=== PATIENT | female | born 1985 | race Caucasian/White ===

== ENCOUNTER 2024-06-11 08:30 | Outpatient (AMB) | payer OTHER, SELFPAY ==
--- NOTE | 2024-06-11 08:30 | A.OFFVIS_ITS ---
Vital Signs 06/11/24 08:32 Height 5 ft Weight 116 lb 13.52 oz BMI 22.8 BP 113/70 Blood Pressure Location Lt brachial Position Sitting Pulse 80 Intake Visit Reasons: Diarrhea and Hx of IBS Intake Note: Lela presents in the office as a new patient for diarrhea and Hx of IBS. CC: She states that she is here today because she suffers from diarrhea. She seen a GI specialist when she was 11 years old where she was diagnosed with IBS but she does not recall ever having any procedures done. She denies any blood or pains in the stomach. Cement Cutter Required: No Allergies No Known Allergies Allergy (Verified 06/11/24 08:34) HPI HPI Diarrhea and Hx of IBS: Details: HPI 39 yr old f here for assessment She was dx with IBS with IBS aged 11 She has noted diarrheal stool for last 1 year now using imodium a lot more often she can go 5 times a day, can be soft no blood in stools no melena no abdominal pain no n/v she can note worsening of sx with dairy --avoids lactose if possible no dysphagai no weight loss appetite is good ROS: Constitutional : No Weight loss, No Fever, No Chills ENT/Mouth : No sore throat, No Rhinorrhea Eyes: No Swelling, No Redness Cardiovascular : No Chest Pain, No SOB, No Edema Respiratory : No Cough, No Sputum, No Wheezing Gastrointestinal : see HPI Genitourinary : NO Dysuria, No Urinary Frequency, No Hematuria, No Urgency Musculoskeletal : no joint pain, No Myalgias, No Joint Swelling Skin : No Skin Lesions, No rash, itchy thighs Neuro : No Weakness, No Numbness, No Dizziness, No Headache Psych : No Anxiety/Panic, No Depression Heme/Lymph: No Bruising, No Lymphadenopathy Endocrine : No Polyuria, No Polydipsia All other systems reviewed and are negative. 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 VITAL SIGNS:see workflow HEENT: Nonicteric sclerae, PERRLA, EOMI. Oropharynx clear. Moist mucous membranes. Conjunctivae appear well perfused. No thyroid mass. CHEST: Chest wall is nontender. HEART: Regular rate and rhythm without murmurs. LUNGS: Clear to auscultation bilaterally. ABDOMEN: Soft, positive bowel sounds, nontender, no organomegaly.no flank tenderness SKIN: red scaly rash on left arm NEUROLOGIC: Cranial nerves II-XII intact without motor/sensory deficit. Psych: normal affect A/P: 1/ Chronic abnormal bowel habit, recently worse using more imodium recently, notes link with dairy--wide differential incl metabolic, infectious, inflammatory, allergic Plans: 1/ Stools, labs as below, incl rast 2/ egd, colo with bx--suprep REPLACED BY [facility] Surgical History SVT (supraventricular tachycardia) Family History (Updated 06/11/24 @ 08:34 by YULY Barakat) Mother Stroke Father Heart attack Paternal Grandmother Colon cancer Social History Household Members: Family Alcohol intake: current Alcohol intake frequency: holidays/special occasions only Alcohol type: wine Patient Tobacco Use Status: Never used Tobacco Physical Exam Vital Signs: BMI result Body Mass Index 22.8 Assessment & Plan Assessment & Plan (1) Diarrhea: Code(s): R19.7 - Diarrhea, unspecified Category: Medical Qualifiers: Diarrhea type: unspecified type Qualified Code(s): R19.7 - Diarrhea, unspecified Plan: see above Orders: Orders Comprehensive Met. Panel Today K75.81 - Nonalcoholic steatohepatitis (SANDRA), R19.7 - Diarrhea, unspecified Rast Allergen Today R19.7 - Diarrhea, unspecified, Z91.018 - Allergy to other foods Transglutaminase IgA Today R19.7 - Diarrhea, unspecified TSH reflex Free T4 Today R19.7 - Diarrhea, unspecified Lactoferrin, Fecal, Quant. Today K51.50 - Left sided colitis without complications, R19.7 - Diarrhea, unspecified Vitamin B12 and Folate Today R19.7 - Diarrhea, unspecified Pancreatic Elastase-1 Today R19.7 - Diarrhea, unspecified GI Panel Today R19.7 - Diarrhea, unspecified Giardia Ag Stool EIA Today R19.7 - Diarrhea, unspecified C Reactive Protein Today R19.7 - Diarrhea, unspecified Complete Blood Count Auto Diff Today R19.7 - Diarrhea, unspecified CDiff Gene PCR Today R19.7 - Diarrhea, unspecified Transglutaminase Ab IgG Today G89.29 - Other chronic pain, R10.33 - Periumbilical pain, R19.7 - Diarrhea, unspecified Fecal Fat Qualitative Today R19.7 - Diarrhea, unspecified Ferritin Today R19.7 - Diarrhea, unspecified Immunoglobulins,IgG IgA IgM Today R19.7 - Diarrhea, unspecified Histamine Plasma Today R19.7 - Diarrhea, unspecified Medications: New sodium,potassium,mag sulfates 17.5-3.13-1.6 gram (Suprep Bowel Prep Kit) DILUTE; drink 1/2 at 6-8 pm and half at 11 PM- 1AM 354 mL 0RF Coding Level of Care Code New Pt Level 4 (75405) Diagnoses Diarrhea, unspecified type R19.7 Diarrhea type: unspecified type
[2024-06-11 08:32] VITALS: BP 113/70; PULSE 80; BMI 22.8
--- OUTSIDE RECORDS SUMMARY | 2024-06-13 12:59 | XMS_ITS ---
Author Organization [facility] Fatemeh valle [place] Address [address] [facility] [address] Care Team Providers Care Oxygen Equipment Aide Name Role Phone Lizabeth Smith [phone] Allergies No Known Allergies Results Component Value Reference Range Notes X ray : Foot, left 3V Reviewed date:05/11/2024 11:03:53 AM Interpretation:See Examination above Performing Lab: Notes/Report: See Examination above REASON FOR VISIT Foot pain Medications Medication SIG (Take, Route, Frequency, Duration) Notes Start Date End Date Status Multivitamin Active Incassia Active Social History Tobacco Use: Social History Observation Description Date Details (start date - stop date) Never Smoker NA - NA Tobacco Use/Smoking Question Answer Notes Are you a: nonsmoker Additional Findings: Tobacco Non-User Current no n-smoker Alcohol Screen Question Answer Notes Did you have a drink containing alcohol in the p ast year? Yes Points 0 Interpretation Negative Tobacco use other than smoking: Question Answer Notes Are you an other tobacco user? No Vital Signs Height 5 ft in 05/11/2024 Weight 115 lbs 05/11/2024 BMI 22.46 kg/m2 05/11/2024 Encounters Encounter Location Date Provider Diagnosis [facility] [place] [address] 05/11/2024 Lizabeth Black Pain in left foot M79.672 ; Metatarsalgia, left foot M77.42 ; Pain in left ankle and joints of left foot M25.572 ; Bursitis of intermetatarsal bursa of left foot M77.52 and Keratosis L57.0 Assessments Encounter Date Diagnosis (ICD Code) Assessment Notes Treatment Notes Treatment Clinical Notes Section Notes 05/11/2024 Pain in left foot (ICD-10 - M79.672) 05/11/2024 Metatarsalgia, left foot (ICD-10 - M77.42) 05/11/2024 Pain in left ankle and joints of left foot (ICD-10 - M25.572) 05/11/2024 Bursitis of intermetatarsal bursa of left foot (ICD-10 - M77.52) 05/11/2024 Keratosis (ICD-10 - L57.0) Plan Of Treatment Next Appt Details Follow Up: prn, Reason: Progress Notes * Lela RODOB: 4 (39 yo F)Acc No.[id number]:05/11/2024 Progress Notes Patient:?Lela Ro Provider:?Lizabeth Smith DPM :1985???Age:39 Y???Sex:Female D ate:05/11/2024 Address:[address] [place], [place] [id number] Subjective: * Chief Complaints: * ???Foot pain * HPI: ???Foot Pain:?Location:?Bottom, Forefoot, LEFT.?Duration:?, 1 year or more.?Course:?worse.?Treatments:?rest/alter normal daily activity.? * ROS:?General/Constitutional:?Nausea?denies.?Vomiting?denies.?Hunger Thirst?denies.?Loss appetite?denies.?Chills?denies.?Fatigue?denies.?Fever?denies.?Night Sweats?denies.?Unexplained weight loss?denies.?Unexplained weight gain?denies.?HEENTM:?Dentures?denies.?Dizziness?denies.?Glasses/contacts?denies.?Retinopathy?de nies.?Blurred/double vision?denies.?TMJ?denies.?Discharge/drainage?denies.?Implants?denies.?Sore throat?denies.?Dental implants?denies.?Hard of hearing ?denies.?Difficulty chewing/swallowing/speaking?denies.?Nose bleeds?denies.?Sore mouth?denies.?Respiratory:?On Oxygen?denies.?Pneumonia/pleurisy?denies.?Bronchitis?denies.?Emphysema?denies.?C oughing?denies.?Cough blood?denies.?Shortness of breath?denies.?Wheezing?denies.?Cardiovascular:?Pacemaker?denies.?MVP?denies.?WPW?denies.?CHF?denies.?Heart attack?denies.?Septal defect?denies.?Rapid beat?denies.?Chest pain ?denies.?Atrial Fib.?admits.?Murmur/Palpitations?denies.?Gastrointestinal:?Hemorrhoids?denies.?Stomach/Abdominal pain?denies.?Dark blood stool?denies.?Irritable bowel ?admits.?Constipation?denies.?Diarrhea?denies.?Hematology:?Swelling?denies.?Clots?denies.?Varicose Veins?denies.?Bruising?denies.?Bleeding problem?denies.?Genitourinary:?Blood urine?denies.?Frequent/Painfu/urination/bladder control?denies.?Kidney stones?denies.?Infection (UTI)?denies.?Nephropathy?denies.?sex trans dis (STD)?denies.?Prostate?denies.?Musculoskeletal:?Hammertoes?denies.?Bunions?denies.?Back Pain?denies.?Muscle Cramps/ Resting?denies.?Muscle cramps / walking?denies.?Generalized aches and pains?denies.?Weakness?denies.?Integ.:?Dailey?denies.?Scars?denies.?Corns/calluses?denies.?Ingrown nails?denies.?Painful nails?denies.?Open Sores?denies.?Rashes?denies.?Neurologic:?Difficulty sleeping?denies.?Brain disorder?denies.?Numbness?denies.?Balance trouble?denies.?Confusion?denies.?Fainting/blackouts?denies.?Tingling?denies.?Tr emors?denies.? * Medical History:? * Surgical History:?catheter a blation 2014 * Hospitalization/Major Diagno stic Procedure:?No Hospitalization History. * Family History:?Mother: krysten hall, poor circulation, diagnosed with Unspecified cerebral artery occlusion with cerebral infarction.?Father: alive, diagnosed with Diabetic - NIDDM, Unspecified heart disease. Maternal Grand Father: diagnosed with Other malignant neoplasm of unspecified site.? * Social History:?Tobacco Use:?Tobacco Use/Smoking?Are you a:?nonsmoker ?Additional Findings: Tobacco Non-User?Current non-smoker ?Tobacco use other than smoking?Are you an other tobacco user??No ???Drugs/Alcohol:?Drugs?Have you used drugs other than those for medical reasons in the past 12 months??No ?Alcohol Screen?Did you have a drink containing alcohol in the past year??Yes ?Points?0 ?Interpretation?Negative ???Miscellaneous:?Caffeine: yes, 2-3 cups per day. ?Children: yes, 2. ?Exercise: yes, walking, hiking, weightlifting. ?Marital status: . 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 * Medications:?TakingIncassia Multivitamin Medication List reviewed and reconciled with the patientTaking Incassia Taking Multivitamin Medication List reviewed and reconciled with the patient * Allergies:?N.K.D.A.yes[Aller gies Verified] Objective: * Vitals:?Ht: 5 ft, Wt:115, BM I:22.46, Shoe size: 6-6.5, Ht-cm: 152.4 cm, Wt-k.16 kg. * Examination: ???General Examination: ?GENERAL APPEARANCE:?Reveals a pleasant, alert, well nourished, well- developed, well hydrated individual, who demonstrates proper attention to hygiene/body habitus, and is in no acute distress, Pt serves as own historian for office visit today.?ORIENTED:?person, place, and time.?Orthopedic: ?MUSCLE STRENGTH:?5/5 all groups in a symmetrical fashion, B/L.?GAIT ABNORMALITY:?antalgic , Pronated , flexor stabilization noted , abducted angle and base of gate.?FOOT MORPHOLOGY:?normal , B/L.?DIGITAL DEFORMITIES:?Digital contracture, PIPJ, 2-5 B/L, incompl-reducible with WB, or to push-up test, no over, nor underlapping.?MPJ PATHOLOGY:? Pain, swelling, and inflammation to 3rd, plantar MPJ(s), LEFT, No MPJ pain with ROM, [ - ] Ecchymosis.?Neurological: ?SENSORY:?Neurological exam reveals intact sensorium, pain sensation normal, vibration sensation intact, pinprick sensation is normal in the lower extremities, Pt denies, anesthesia, burning, paresthesia, tingling, B/L.?TINEL'S COMPRESSION:? Negative tarsal tunnel, yen pedis, and medial calcaneal nerves, Left.?Neuroma Pain: ?PALPATION:?No interspace pain noted on palpation, LEFT.?Vascular: ?DP PULSES(B):?3/4, B/L.?PT PULSES(B):?3/4, B/L.?CAPILLARY FILL TIME:?immediate, all digits, B/L.?TROPHIC CONDITION-TEXTURE/ELASTICITY/TURGOR/HAIR GROWTH(B):?normal, B/L.?TEMPERTURE GRADIENT(C):?normal, warm to cool, proximal to distal, B/L, B/L.?PIGMENTATION:?normal, B/L.?EDEMA(C):?absent, B/L.?ELEV. PALOR:?absent, B/L.?Dermatologic: ?SKIN FINDINGS:?Skin exam reveals normal color, texture, elasticity, and turgor. There are no masses, nor excrescences. The interspaces are clear, B/L , Skin exam reveals Keratotic lesion(s) located at , Plantar , SUB MTH (s) , 3 , Left.?VERRUCA:?NO evidence of verruca lesion.?X-Rays - IMAGING REPORT: ?Clinical Indication(s):? Evaluate for Fracture.?Views:? 3 views of Foot, AP, LAT, LO, LEFT.?Findings:?normal bone and soft tissue density consistent for patients age and sex, elongated plantarflexed [3rd_ ] metatarsal with hypertrophied MTH.?Fracture:?Negative fractures identified.? Assessment: * Assessment: 1.?Metatarsalgia, left foot - M77.42 (Primary)?2.?Pain in left foot - M79.672?3.?Pain in left ankle and joints of left foot - M25.572?4.?Bursitis of intermetatarsal bursa of left foot - M77.52?5.?Keratosis - L57.0? Plan: * Treatment: * Procedure Codes:?37258 X-RAY EXAM OF LEFT FOOT 3V, Modifiers: 26 , LT * Preventive Medicine:? ??Counseling:?Discussion:?-04: Office or other outpatient visit for the evaluation and management of a new patient, which required a medically appropriate history and/or examination and MODERATE level of DECISION MAKING for: 1 OR MORE CHRONIC PROBLEM(S) THATS WORSENING, 2 STABLE CHRONIC PROBLEMS, A NEWLY DIAGNOSED PROBLEM WITH UNCERTAIN PROGNOSIS, AN ACUTE COMPLICATED INJURY WITH MULTIPLE TREATMENT OPTIONS, OR AN ACUTE PROBLEM WITH ACCOMPANYING SYSTEMIC SYMPTOMS, THAT POSE(S) A MODERATE RISK OF MORBIDITY. THIS CONDITION MAY ALSO INCLUDE RX DRUG MANAGEMENT, OR A DECISON FOR MINOR SURGERY. The visit on the day of the encounter encompassed interpreting the data and educating the patient as to the nature of their condition, treatment options available according to their individual PMH, meds, allergies, and overall health/living conditions, as well as any potential risks or complications that may occur from a failure to adhere to, and participate in, the recommended course of therapy. The discussion included a complete verbal, and/or written explanation of the examination results, any x-rays taken, the proposed diagnosis, and outline of the treatment plan. A schedule for future care needs was also explained. The patient verbalized an understanding of the instructions at this time and agreed to be an active participant in their treatment. If the patient should think of any questions or concerns after the visit, I have encouraged the patient to call the office.?BioMech.:?Discussed and reviewed the X-rays with the patient. We discussed how the findings relate to the patients symptoms/complaints. Answered any and all questions., I discussed the Pts foot biomechanics with them and how it relates to their problem.?Metatarsalgea:?I explained to the patient the possible etiologies of their Metatarsalgea Foot pain, including foot type/shoegear/activity level/exercise routine and the risks/benefits of all the different treatment options for pain including: No treatment at all, Rest, Ice, NSAIDs(only if well tolerated after meals), New/supportive Shoegear, Strappings and Tapings, Foot/Ankle AFO Bracing, Stretching exercises, Deep Tissue Massage, Arch support/shoe inserts, Custom orthoses, Topical analgesics including Aspercream/Voltaren gel, Physical Therapy, Cortisone injection therapy, EPAT/ESWT. Advantages and disadvantages of each option were discussed and the patients questions re: shoegear, custom vs prefabricated inserts, activity level, PO vs Topical medications (and their respective potential complications/drug interactions/side effects), and consistency in home treatment regimens for optimal success were answered to their verbally confirmed satisfaction.?Orthotics:?I explained to the patient the benefits of OT use. I explained that orthoses are medically necessary to decrease the foot pain through proper mechanical control, support of their foot, decrease pain associated with the plantar lesion, decrease pain under the painful metatarsal by supplementing the soft tissue.Pt defers on OTC inserts at thie time.?Shoe Gear Counseling:?The patient and I reviewed the types of shoes they should be wearing. My recommendation included obtaining a well-fitted shoe with a good supportive, non-foldable nor twistable sole, plenty of toe/room for the forefoot, and proper arch support. Based on todays examination, I recommended the patient look for new shoes, by having their feet professionally measured. We discussed that generally the best time of the day for a shoe fitting is the afternoon. Different shoes types and brands to best match the patients occupation and vocation were discussed. Specific brand selection will be up to the patient, their individual foot condition/deformities, and fit. The patient and I reviewed the standard new shoe break in period by wearing them for a few hours a day while checking for redness or sores as wear time is increased. The patient verbally confirmed to understanding the information discussed, Recommend supportive running shoes for patient, discussed various shoe brands including Hinojosa, Asics, New Balance, [employer]y. Discussed types of shoes to avoid for patients foot type..? * Follow Up:?prn * Images: * Sign off status: Completed true * Provider:?Lizabeth Smith DPM Date:?2023 Generated for Ruby hewitt/Solo/Valeriaitting on:?06/13/2024 12:59 PM EST History and Physical Notes * HPI (History of Present Illness) Category Sub-Category Detail Notes Category Not es Foot Pain Location: Bottom, Forefoot, LEFT Duration: , 1 year or more Course: worse Treatments: rest/alter normal da stanislaw activity Examination Category Sub-Category Detail Notes Category Not es Neuroma Pain PALPATION: No interspace pain noted on palpation, LEFT Neurological SENSORY: Neurological exa m reveals intact sensorium, pain sensation normal, vibration sensation intact, pinprick sensation is normal in the lower extremities, Pt denies, anesthesia, burning, paresthesia, tingling, B/L TINEL'S COMPRESSION: Negative tarsal abbie jameson, yen pedis, and medial calcaneal nerves, Left Dermatologic SKIN FINDINGS: Skin exam reveal s normal color, texture, elasticity, and turgor. There are no masses, nor excrescences. The interspaces are clear, B/L , Skin exam reveals Keratotic lesion(s) located at , Plantar , SUB MTH (s) , 3 , Left VERRUCA: NO evidence of verru ca lesion Orthopedic GAIT ABNORMALITY: antalgic , Pro nated , flexor stabilization noted , abducted angle and base of gate FOOT MORPHOLOGY: normal , B/L DIGITAL DEFORMITIES: Digital contracture , PIPJ, 2-5 B/L, incompl-reducible with WB, or to push-up test, no over, nor underlapping MPJ PATHOLOGY: Pain, swelling, and inflammation to 3rd, plantar MPJ(s), LEFT, No MPJ pain with ROM, [ - ] Ecchymosis MUSCLE STRENGTH: 5/5 all groups in a symmetrical fashion, B/L General Examination GENERAL APPEARANCE: Reveals a pleasant, alert, well nourished, well-developed, well hydrated individual, who demonstrates proper attention to hygiene/body habitus, and is in no acute distress, Pt serves as own historian for office visit today ORIENTED: person, place, and t martín Vascular DP PULSES(B): 3/4, B/L PT PULSES(B): 3/4, B/L CAPILLARY FILL TIME: immediate, all digi ts, B/L TEMPERTURE GRADIENT(C): normal, warm to cool, proximal to distal, B/L, B/L TROPHIC CONDITION-TEXTURE/ELASTICITY/TURGOR/HAIR GROWTH(B): normal, B/L EDEMA(C): absent, B/L ELEV. PALOR: absent, B/L PIGMENTATION: normal, B/L X-Rays - IMAGING REPORT Findings: normal b one and soft tissue density consistent for patients age and sex, elongated plantarflexed [3rd_ ] metatarsal with hypertrophied MTH Fracture: Negative fractures i dentified Views: 3 views of Foot, AP, LAT, LO, LEFT Clinical Indication(s): Evaluate for Fra cture
--- OUTSIDE RECORDS SUMMARY | 2024-06-13 12:59 | XMS_ITS ---
Author Organization [facility] Address [address] [place] [address] Care Team Providers Care Tracing Lathe Set Up Operator Name Role Phone Lizabeth Smith Alise [phone] REASON FOR VISIT TRANSFER IRON OPERATOR PPWK Entered Encounters Encounter Location Date Provider Diagnosis [facility] [address] [place] [address] 05/04/2024 Lizabeth Smith Plan Of Treatment No Information Progress Notes * Lela RODOB: 4 (39 yo F)Acc No.[id number]:05/04/2024 Patient:?RoLela newby :1985???Age:39 Y???Sex:Female Address:[address] [place] [address], [address] * true * Date:? Generated for Ruby hewitt/Solo/eTransmitting on:?06/13/2024 12:59 PM EST
--- OUTSIDE RECORDS SUMMARY | 2024-06-13 13:00 | XMS_ITS ---
Author Organization [facility] Address [address] [place] [address] Care Team Providers Care Nursing Professor Name Role Phone Lizabeth Smith Alise [phone] Encounters Encounter Location Date Provider Diagnosis [address] [address] 02/29/2024 Lizabeth Smith Plan Of Treatment No Information Progress Notes * Lela RODOB: 4 (39 yo F)Acc No.[id number]:02/29/2024 Progress Notes Patient:?ARABELLA Lela Provider:?Lizabeth Smith DPM :1985???Age:38 Y???Sex:Female D ate:02/29/2024 Address:[address] [place], [place] [id number] Subjective: * Chief Complaints: * ??? * Medical History:? Objective: * Vitals:? Assessment: Plan: * Treatment: * Images: * The named appointment provid er may or may not be the originator of this progress note, and it is not deemed complete until electronically signed by the appointment provider. Sign off status: Pending * Provider:Ashley Smith DPM Date:?2023 Generated for Ruby hewitt/Solo/Valeriaitting on:?06/13/2024 12:59 PM EST
--- OUTSIDE RECORDS SUMMARY | 2024-06-13 13:00 | XMS_ITS | Patient Health Record ---
Author Organization [facility] Address [address] [place] [address] Care Team Providers Care Hydrochloric Manufacturing Supervisor Name Role Phone Lizabeth Smith Unavailable [phone] Allergies No Known Allergies Results Component Value Reference Range Notes X ray : Foot, left 3V Reviewed date:05/11/2024 11:03:53 AM Interpretation:See Examination above Performing Lab: Notes/Report: See Examination above Reason For Referral No Information Medications Medication SIG (Take, Route, Frequency, Duration) [...] 05/11/2024 Encounters Encounter Location Date Provider Diagnosis [address] [address] 05/11/2024 Lizabeth Black Pain in left foot M79.672 ; Metatarsalgia, left foot M77.42 ; Pain in left ankle and joints of left foot M25.572 ; Bursitis of intermetatarsal bursa of left foot M77.52 and Keratosis L57.0 [facility] [address] [place] [address] 02/09/2024 Lizabethrafael Smith [facility] [address] [place] [address] 05/04/2024 Lizabeth Luis Assessments Encounter Date Diagnosis (ICD Code) Assessment Notes Treatment Notes Treatment Clinical Notes Section Notes 05/11/2024 Metatarsalgia, left foot (ICD-10 - M77.42) 05/11/2024 Pain in left foot (ICD-10 - M79.672) 05/11/2024 Pain in left ankle and joints of left foot (ICD-10 - M25.572) 05/11/2024 Bursitis of intermetatarsal bursa of left foot (ICD-10 - M77.52) 05/11/2024 Keratosis (ICD-10 - L57.0) Plan Of Treatment No Information Insurance Providers Payer Name Payer Address Payer Phone Subscriber Number Group Number Insured Name Patient Relationship to Insured Coverage Start Date Coverage End Date [facility] [id number] [place], [place] [phone] [id number] Lela Ro Self - patient is the insured Medical (General) History Medical History History ICD Code Headaches/Migraines Chicken pox Surgical History Surgery Date(Month/Year) catheter ablation 2013
== END 2024-06-11 08:51 | disposition home or self-care (01) ==
PROVIDERS: PCP Internal Medicine; Visit Provider Internal Medicine Gastroenterology
DX: R19.7 Diarrhea, unspecified (principal)
CPT/HCPCS: 99204

== ENCOUNTER 2024-06-11 08:30 | Outpatient (REF) | payer OTHER, SELFPAY ==
[2024-06-11 09:30] LABS: MANUAL DIFF FLAG NO
[2024-06-11 10:11] LABS: Basophils Absolute Auto 0.1 X10*3/uL (0.0-0.2); Basophils Percent Auto 0.8 % (0-2); Eosinophils Absolute Auto 0.2 X10*3/uL (0.0-0.4); Eosinophils Percent Auto 2.2 % (0-4); Hematocrit 39.4 % (37.0-47.0); Hemoglobin 13.2 g/dl (12.0-16.0); Imm Gran Abs Auto 0.02 X10*3/uL (0.00-0.03); Imm Gran Pct Auto 0.3 % (0.0-0.4); Lymphocytes Absolute Auto 2.7 X10*3/uL (1.2-4.9); Mean Corpuscular HGB Conc 33.5 g/dl (31.0-35.0); Mean Corpuscular Hemoglobin 30.8 pg (27.0-33.0); Mean Corpuscular Volume 92.1 fL (80.0-98.0); Mean Platelet Volume 9.3 fL (9.4-12.3); Monocytes Absolute Auto 0.5 X10*3/uL (0.1-1.2); Monocytes Percent Auto 7.4 % (2-11); Neutrophils Absolute Auto 3.8 x10*3/uL (2.0-8.3); Neutrophils Percent Auto 52.3 % (45-73); Platelet Count 294 X10*3/uL (160-400); Red Blood Count 4.28 X10*6/uL (4.20-5.50); Red Cell Distribution Width 11.9 % (11.0-16.0); White Blood Count 7.3 X10*3/uL (4.8-10.8)
[2024-06-11 11:10] LABS: Alanine Aminotransferase 17 U/L (0-31); Albumin Level 4.3 g/dL (3.5-5.0); Alkaline Phosphatase 73 U/L (39-117); Anion Gap 11 (12-20); Aspartate Amino Transferase 14 U/L (5-31); Bilirubin Total 0.4 mg/dL (0.0-1.0); Blood Urea Nitrogen 15 mg/dL (9-16); Calcium 9.2 mg/dL (8.4-10.2); Carbon Dioxide 24 mmol/L (22-29); Chloride 106 mmol/L (96-108); Estimated Glomerular Filt Rate > 60; Ferritin 128 ng/mL (10-250); Glucose Random 94 mg/dL (60-115); Potassium 3.8 mmol/L (3.3-5.1); Sodium 137 mmol/L (135-145); TSH reflex Free T4 2.71 uIU/mL (0.32-4.0); Total Protein 7.1 g/dL (6.5-8.0)
[2024-06-11 11:25] LABS: Folate 16.1 ng/mL (> or = 4.0); Vitamin B12 584 pg/mL (200-900)
[2024-06-12 11:33] LABS: IgA 95 mg/dL (47-310); IgG 1061 mg/dL (600-1640); IgM 136 mg/dL (50-300)
[2024-06-12 20:28] LABS: Transglutaminase Ab IgG <1.0 U/mL; Transglutaminase IgA <1.0 U/mL
[2024-06-15 17:18] LABS: Histamine Plasma <1.5 ng/mL (< OR = 1.8)
== END 2024-06-11 08:31 | disposition home or self-care (01) ==
LOC: HO.LAB 08:30
PROVIDERS: Internal Medicine Gastroenterology; PCP Internal Medicine; Visit Provider Internal Medicine
DX: Z91.018 Allergy to other foods (principal); R19.7 Diarrhea, unspecified; R10.33 Periumbilical pain; G89.29 Other chronic pain; K75.81 Nonalcoholic steatohepatitis (NASH)
CPT/HCPCS: 36415; 80053; 82607; 82728; 82746; 82784; 83088; 84443; 85025; 86003; 86140; 86364

== ENCOUNTER 2024-06-15 09:48 | Outpatient (REF) | payer OTHER, SELFPAY ==
--- OUTSIDE RECORDS SUMMARY | 2024-06-15 09:54 | XMS_ITS ---
Author Organization [facility] Address [address] [place] [address] Care Team Providers Care Transfer Man Name Role Phone Lizabeth Smith Alise [phone] Encounters Encounter Location Date Provider Diagnosis [address] [address] 02/29/2024 Lizabeth Smith Plan Of Treatment No Information Progress Notes * Lela RODOB: 4 (39 yo F)Acc No.[id number]:02/29/2024 Progress Notes Patient:?ARABELLA Lela Provider:?Lizabeth Smith DPM :1985???Age:38 Y???Sex:Female D ate:02/29/2024 Address:[address] [place], [place] [id number] Subjective: * Chief Complaints: * ??? * Medical History:? Objective: * Vitals:? Assessment: Plan: * Treatment: * Images: * The named appointment provid er may or may not be the originator of this progress note, and it is not deemed complete until electronically signed by the appointment provider. Sign off status: Pending * Provider:Ashley Smith DPM Date:?2023 Generated for Ruby hewitt/Solo/eTjorgesmitting on:?06/15/2024 09:54 AM EST
--- OUTSIDE RECORDS SUMMARY | 2024-06-15 09:54 | XMS_ITS | Patient Health Record ---
Author Organization [facility] Address [address] [place] [address] Care Team Providers Care Director Law Enforcement Name Role Phone Lizabeth Smith Unavailable [phone] Allergies No Known Allergies Results Component Value [...] 05/11/2024 Encounters Encounter Location Date Provider Diagnosis [address] [address] 05/11/2024 Lizabeth Black Pain in left foot M79.672 ; Metatarsalgia, left foot M77.42 ; Pain in left ankle and joints of left foot M25.572 ; Bursitis of intermetatarsal bursa of left foot M77.52 and Keratosis L57.0 [facility] [address] [place] [address] 02/09/2024 Lizabethrafael Smith [facility] [address] [place] [address] 05/04/2024 Lizabeth Luis Assessments Encounter Date Diagnosis [...] Insured Coverage Start Date Coverage End Date [facility] [id number] [place], [place] [phone] [id number] Lela Ro Self - patient is the insured Medical (General) History Medical History History ICD Code Headaches/Migraines Chicken pox Surgical History Surgery Date(Month/Year) catheter ablation 2013
--- OUTSIDE RECORDS SUMMARY | 2024-06-15 09:54 | XMS_ITS ---
Author Organization [facility] Address [address] [place] [address] Care Team Providers Care Reading Specialist Name Role Phone Lizabeth Smith Alise [phone] REASON FOR VISIT [facility] Entered Encounters Encounter Location Date Provider Diagnosis [facility] [address] [place] [address] 05/04/2024 Lizabeth Smith Plan Of Treatment No Information Progress Notes * Lela RODOB: 4 (39 yo F)Acc No.[id number]:05/04/2024 Patient:?RoLela newby :1985???Age:39 Y???Sex:Female Address:[address] [place] [address], [address] * true * Date:? Generated for Ruby hewitt/Solo/eTransmitting on:?06/15/2024 09:54 AM EST
--- OUTSIDE RECORDS SUMMARY | 2024-06-15 09:54 | XMS_ITS ---
[facility] Fatemeh valle Joes Address [address] [facility] [place] [address] Care Team Providers Care Rn Critical Care Name Role Phone Lizabeth Smith [phone] Allergies No Known Allergies Results Component Value [...] 05/11/2024 Encounters Encounter Location Date [facility] [place] [address] 05/11/2024 Lizabeth Black Pain in left foot [...] * Lela RODOB: 4 (39 yo F)Acc No.[id number]:05/11/2024 Progress Notes Patient:?Lela Ro Provider:?Lizabeth Smith DPM :1985???Age:39 Y???Sex:Female D ate:05/11/2024 Address:[address] [place], [place] [id number] Subjective: * Chief Complaints: * ???Foot pain [...] walking, hiking, weightlifting. ?Marital status: . 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 * Medications:?TakingIncassia Multivitamin Medication List reviewed and [...] - L57.0? Plan: * Treatment: * Procedure Codes:?72753 X-RAY EXAM OF LEFT FOOT 3V, Modifiers: [...] Provider:?Lizabeth Smith DPM Date:?2023 Generated for Ruby hewitt/Solo/Constanza on:?06/15/2024 09:54 AM EST History and Physical Notes * HPI [...]
[2024-06-15 11:48] LABS: CDiff Gene PCR NEGATIVE (Negative)
[2024-06-15 11:59] LABS: Adenovirus F 40/41 Not Detected (Not Detect.); Astrovirus Not Detected (Not Detect.); Campylobacter Not Detected (Not Detect.); Cryptosporidium Not Detected (Not Detect.); Cyclospora cayetanensis Not Detected (Not Detect.); E. coli EAEC Not Detected (Not Detect.); E. coli EPEC Detected (Not Detect.); E. coli ETEC Not Detected (Not Detect.); E. coli STEC Not Detected (Not Detect.); Entamoeba histolytica Not Detected (Not Detect.); Giardia lamblia Not Detected (Not Detect.); Norovirus GI/GII Not Detected (Not Detect.); Plesiomonas shigelloides Not Detected (Not Detect.); Rotavirus A Not Detected (Not Detect.); Salmonella Not Detected (Not Detect.); Sapovirus Not Detected (Not Detect.); Shigella sp./EIEC Not Detected (Not Detect.); Vibrio Not Detected (Not Detect.); Vibrio Cholerae Not Detected (Not Detect.); Yersinia enterocolitica Not Detected (Not Detect.)
[2024-06-20 18:04] LABS: Fecal Fat Qualitative Normal (Normal)
[2024-06-21 01:14] LABS: Lactoferrin, Fecal, Quant. <6.25 mcg/mL (<7.25)
[2024-06-22 17:13] LABS: Pancreatic Elastase-1 >800 mcg/g (>200)
== END 2024-06-15 09:49 | disposition home or self-care (01) ==
LOC: HO.LNP 09:48
PROVIDERS: Visit Provider Internal Medicine Gastroenterology
DX: K51.50 Left sided colitis without complications (principal); R19.7 Diarrhea, unspecified
CPT/HCPCS: 82656; 82705; 83631; 87493; 87507

== ENCOUNTER 2024-06-25 08:31 | Outpatient (REF) | payer OTHER, SELFPAY ==
--- OUTSIDE RECORDS SUMMARY | 2024-06-25 08:33 | XMS_ITS ---
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 Generated for Ruby hewitt/Solo/eTransmitting on:?06/25/2024 08:33 AM EST
--- OUTSIDE RECORDS SUMMARY | 2024-06-25 08:33 | XMS_ITS | Patient Health Record ---
Author Organization [facility] Address [address] [place] [address] Care Team Providers Care Automotive Accessory Installer Name Role Phone Lizabeth Smith Unavailable [phone] Allergies No Known Allergies Results Component Value [...] 05/11/2024 Encounters Encounter Location Date Provider Diagnosis [address] [address] 05/11/2024 Lizabeth Black Pain in left foot M79.672 ; Metatarsalgia, left foot M77.42 ; Pain in left ankle and joints of left foot M25.572 ; Bursitis of intermetatarsal bursa of left foot M77.52 and Keratosis L57.0 [facility] [address] [place] [address] 02/09/2024 Lizabethrafael Smith [facility] [address] [place] [address] 05/04/2024 Lizabeth Luis Assessments Encounter Date Diagnosis [...] Insured Coverage Start Date Coverage End Date [facility] [address] [place], [place] [phone] [id number] Lela Ro Self - patient is the insured Medical (General) History Medical History History ICD Code Headaches/Migraines Chicken pox Surgical History Surgery Date(Month/Year) catheter ablation 2013
--- OUTSIDE RECORDS SUMMARY | 2024-06-25 08:33 | XMS_ITS ---
Author Organization [facility] Address [address] [place] [address] Care Team Providers Care Process Camera Operator Name Role Phone Lizabeth Smith Alise [phone] Encounters Encounter Location Date Provider Diagnosis [address] [address] 02/29/2024 Lizabeth Smith Plan Of Treatment No Information Progress Notes * Lela RODOB: 4 (39 yo F)Acc No.[id number]:02/29/2024 Progress Notes Patient:?ARABELLA Lela Provider:?Lizabeth Smith DPM :1985???Age:38 Y???Sex:Female D ate:02/29/2024 Address:[address] [place], [place] [id number] Subjective: * Chief Complaints: * ??? * Medical History:? Objective: * Vitals:? Assessment: Plan: * Treatment: * Images: * The named appointment provid er may or may not be the originator of this progress note, and it is not deemed complete until electronically signed by the appointment provider. Sign off status: Pending * Provider:Ashley Smith DPM Date:?2023 Generated for Ruby hewitt/Solo/eTjorgesmitting on:?06/25/2024 08:33 AM EST
== END 2024-06-25 08:32 | disposition home or self-care (01) ==
LOC: HO.LNP 08:31
PROVIDERS: Visit Provider Internal Medicine Gastroenterology
DX: R19.7 Diarrhea, unspecified (principal)
CPT/HCPCS: 87329

== ENCOUNTER 2024-09-25 08:22 | Day surgery (SDC) | payer OTHER, SELFPAY ==
[2024-09-21 13:46] VITALS: BMI 22.7
--- NOTE | 2024-09-24 09:48 | PC.NURSE ---
SPOKE TO PATIENT AND SHE STATED SHE HAD A CARDIAC ABLATION AT [facility]. 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 CARDIAC RUSS. MD BENNETT.
[2024-09-25 09:14] VITALS: BMI 23.2
[2024-09-25 09:17] VITALS: BP 94/66; PULSE 95; RESP 16; TEMP 36.4; O2SAT 99
[2024-09-25 09:32] LABS: UPreg QC Valid YES; Urine Pregnancy NEGATIVE (NEGATIVE)
--- NOTE | 2024-09-25 09:40 | MHC.SHP ---
Pre-Procedural Eval Section A - 24 Hr Update-Section A only Date of Service: 09/25/24 Section B - Complete if H&P > 30 days Chief Complaint: Diarrhea, unspecified Relevant Family History (Specify if Yes): No Relevant Social History: None Present Medications: see Short Stay Collaborative assessment Medical History: Significant History (svt) History of Previous Operations: Relevant previous surgery/procedure and date(s) (ablation, cardiac) Allergies: Allergies Allergy/AdvReac Type Severity Reaction Status Date / Time No Known Allergies Allergy Verified 06/11/24 08:34 Review of Systems Sugical H&P ROS: Negative: Constitution, Cardiovascular, Respiratory, Neurological, Psychiatric, Hem-Onc, Allergic/Immunologic, Gastrointestinal, Genitourinary, Musculoskeletal, Integumentary, Endocrine and Eyes/Ears/Nose/Throat Exam Surgical H&P Exam: Normal: HEENT, Normal: Heart, Normal: Lungs, Normal: Extremities, Normal: Abdomen, Normal: Skin and Normal: Neurological Plan Diagnosis/Plan: Unchanged I have reviewed the history and physical and performed a pertinent physical examination on my patient. No changes have occurred unless specified. Time Spent With Patient Time: Total time managing care of this patient today ____ minutes.
--- NOTE | 2024-09-25 10:56 | HO.OPN-COLON ---
Colonoscopy Operative Note Operative Note Date of Service: 09/25/24 Narrative: Operative Information Procedure Description: EGD, Colonoscopy Indication: diarrhea Anesthesia: MAC FLEXIBLE TRANSORAL UPPER GASTROINTESTINAL ENDOSCOPY AND COLONOSCOPY PROCEDURE NOTE UPPER ENDOSCOPY Consent: Indications for the procedure and potential complications of bleeding, perforation, reaction to medications and missed diagnosis were discussed with the patient and informed consent was obtained. Instrument: Olympus GIF H 190 J mid size upper endoscope Monitoring: Vital signs and clinical assessment, continuous EKG monitoring, Pulse oximetry, Carbon Dioxide monitoring and blood pressure monitoring were done throughout the procedure. Procedure: The patient was placed in the left lateral decubitis position and pre-procedure medications were administered and a bite block was placed. The endoscope was inserted into the mouth and advanced under direct vision to the third part of duodenum. A careful inspection was made as the upper endoscope was withdrawn including a retroflexed examination of the proximal stomach; Findings and interventions are described below. Findings: Larynx:normal Esophagus: GE junction at 35 cm, diaphragm hiatus at 35 cm, normal mucosa -bx taken from distal and proximal areas Stomach: streaky erythema. Biopsies were obtained. Grade 2 flap valve on retroflexed examination of the cardia. Duodenum: Normal bulb and descending duodenum, bx taken Intervention: Biopsies as noted above, COLONOSCOPY Instrument: Olympus variable stiffness pediatric scope 190L Colonoscopy Monitoring: Vital signs and clinical assessment, continuous EKG monitoring, Pulse oximetry, Carbon Dioxide monitoring and blood pressure monitoring were done throughout the procedure. Colon withdrawal time was 11 minutes. Procedure: The patient was placed in the left lateral decubitis position and pre-procedure medications were administered. After a digital rectal examination of the ano-rectum, the video colonoscope was inserted into the rectum and advanced through the colon to the cecum/TI. The colonoscope was slowly withdrawn in a retrograde panoramic fashion and the colon mucosa was carefully examined including a retroflexed view of the rectum. Findings and interventions are described below. Procedure Difficulty:moderate- tortuous colon Findings: Terminal Ileum-normal, bx taken bx taken from right and left colon, rectum Cecum:normal Ascending Colon: normal Transverse Colon -normal Descending Colon:normal Sigmoid Colon: normal Rectum: Retroflexion with small internal hemorrhoids, grade I Anorectum - normal Colon preparation: [place] Bowel Preparation Scale Right colon; 2 Transverse colon: 2 Left colon; 2 (0 = Unprepared colon segment with mucosa not seen due to solid stool that cannot be cleared. 1 = Portion of mucosa of the colon segment seen, but other areas of the colon segment not well seen due to staining, residual stool and/or opaque liquid. 2 = Minor amount of residual staining, small fragments of stool and/or opaque liquid, but mucosa of colon segment seen well. 3 = Entire mucosa of colon segment seen well with no residual staining, small fragments of stool or opaque liquid) Impression and Post Procedure Diagnosis: Endoscopy Findings: gastritis Colonoscopy Findings: internal hemorrhoids Plan: Await Pathology results Repeat Colonoscopy aged 45 years for screening or earlier if clinically indicated High fiber diet leaflet avoid straining at stool, epsom salts and sitz bath, anusol supps or cream if h pylori pos then treat Above findings were reviewed with the patient and relevant handouts were provided if indicated.
[2024-09-25 11:25] VITALS: BP 107/58; PULSE 98; RESP 15; TEMP 36.6; O2SAT 99
[2024-09-25 11:39] VITALS: BP 111/71; PULSE 82; RESP 16; O2SAT 98
== END 2024-09-25 12:18 | disposition home or self-care (01) ==
PROVIDERS: PCP Internal Medicine; Visit Provider Internal Medicine Gastroenterology
PROC: (CPT 45380; principal; 2024-09-25 11:10)
DX: R19.7 Diarrhea, unspecified (principal); R10.33 Periumbilical pain; K58.9 Irritable bowel syndrome, unspecified; K64.0 First degree hemorrhoids; K29.50 Unspecified chronic gastritis without bleeding; K75.81 Nonalcoholic steatohepatitis (NASH); I47.10 Supraventricular tachycardia, unspecified
CPT/HCPCS: 45380; 43239; 36415; 81025; 82657; 88305; 88342; J2003; J2704

== ENCOUNTER → 2024-09-25 08:22 | Outpatient (BNV) | payer OTHER, SELFPAY | PROVIDERS: PCP Internal Medicine; Visit Provider Internal Medicine Gastroenterology | DX: R19.7 Diarrhea, unspecified (principal); K64.0 First degree hemorrhoids; K29.70 Gastritis, unspecified, without bleeding | CPT/HCPCS: 43239; 45380 ==

== ENCOUNTER 2024-12-10 09:12 | Outpatient (AMB) | payer OTHER, SELFPAY ==
--- NOTE | 2024-12-10 09:19 | MHC.OFFVIS ---
Vital Signs 12/10/24 09:23 Height 5 ft Weight 116 lb BMI 22.7 BP 126/74 Blood Pressure Location Lt brachial Position Sitting Pulse 86 Pulse Oximetry (%) 98 Oxygen Delivery Method Room Air Intake Visit Reasons: 6 month follow up Intake Note: Patient follow up for Patient cc: abdominal discomfort and denies any other GI issues for today visit. Picking Machine Operator Required: No Accompanied by: Self / Same As Patient Allergies No Known Allergies Allergy (Verified 06/11/24 08:34) HPI HPI 6 month follow up: Details: 39 yr old f here for f/u for IBS RECAP: She was dx with IBS with IBS aged 11 She had noted diarrheal stool for last 1 year using imodium a lot more often she can go 5 times a day, can be soft she can note worsening of sx with dairy --avoids lactose if possible Stool: pos EPEC EGD/COLO: 09/25 tortuous colon int hemorrhoids gastritis PATH:chronic gastritis, lymphoid aggregates colon--tissue lactase--nml RAST- negative celiac- neg INTERIM: Feeling better overall still has bouts of stool frequency, maybe with certain foods like pasta no blood in stools no melena no abdominal pain no n/v no dysphagia no weight loss appetite is good EXAM: GENERAL: The patient is well developed and nontoxic. VITAL SIGNS:see workflow HEENT: Nonicteric sclerae, PERRLA, EOMI. Oropharynx clear. Moist mucous membranes. Conjunctivae appear well perfused. No thyroid mass. CHEST: Chest wall is nontender. HEART: Regular rate and rhythm without murmurs. LUNGS: Clear to auscultation bilaterally. ABDOMEN: Soft, positive bowel sounds, nontender, no organomegaly.no flank tenderness SKIN: red scaly rash on left arm NEUROLOGIC: Cranial nerves II-XII intact without motor/sensory deficit. Psych: normal affect A/P: 1/ Chronic abnormal bowel habit, improved but still present could be h pylori related, or subacute colitis given lymphoid aggregates Plans: 1/ H pylori - if neg then PPI and maybe trial of mesalamine f/u 4 months PFSH Surgical History SVT (supraventricular tachycardia) Family History Mother Stroke Father Heart attack Paternal Grandmother Colon cancer Social History Household Members: Family Alcohol intake: current Alcohol intake frequency: holidays/special occasions only Alcohol type: wine Patient Tobacco Use Status: Never used Tobacco Physical Exam Vital Signs: Last Vital Signs Pulse 86 12/10/24 09:23 BP 126/74 12/10/24 09:23 Pulse Ox 98 12/10/24 09:23 Oxygen Delivery Method Room Air 12/10/24 09:23 BMI result Body Mass Index 22.7 Assessment & Plan Assessment & Plan (1) Diarrhea: Code(s): R19.7 - Diarrhea, unspecified Category: Medical Qualifiers: Diarrhea type: unspecified type Qualified Code(s): R19.7 - Diarrhea, unspecified Plan: see above Orders: Orders H Pylori Breath Test Today R19.7 - Diarrhea, unspecified Coding Level of Care Code Est Pt Level 3 (91137) Diagnoses Diarrhea, unspecified type R19.7 Diarrhea type: unspecified type
[2024-12-10 09:23] VITALS: BP 126/74; PULSE 86; O2SAT 98; BMI 22.7
--- OUTSIDE RECORDS SUMMARY | 2024-12-10 09:36 | XMS_ITS | Encounter Summary ---
Author Organization [facility] Address [address] [place] [address] Care Team Providers Care Bacteriologist Pharmaceutical Name Role Phone Community, Pcp Primary Care Provider Kalee Whalen MD Primary Care Provider Yamilet Kalee Cortez MD Primary Care Provider Yamilet vailaAristides Roth MD Primary Care Provider [phone] Encounter Details Date Type Department Care Team Description 05/13/2014 Pt. Non Urgent Medical Question [facility]-[address] [address] [place], [place] Social History Tobacco Use Types Packs/Day Years Used Date Smoking Tobacco: Never Smokeless Tobacco: Never Alcohol Use Standard Drinks/Week Comments Yes 0 (1 standard drink = 0.6 oz pur e alcohol) 2-3 beers over weekend Alcohol Habits Answer Date Recorded How often do you have a drink containing alcohol ? Never 06/03/2020 How many drinks containing a lcohol do you have on a typical day when you are drinking? Not asked How often do you have six or more drinks on one occasion? Not asked Sex Assigned at Date Recorded Not on file documented as of this encounter Plan of Treatment Not on file documented as of this encounter Visit Diagnoses Not on filedocumented in this encounter Care Teams Bacteriologist Pharmaceutical Relationship Specialty Start Date End Date Community, Pcp PCP - General Internal Medicine 10/08/15 02/20/18 Kalee Jones MD PCP - General Internal Medicine 02/21/18 09/07/21 Kalee Jones MD PCP - General 02/27/14 10/07/15 Aristides Thompson MD [address] [place] [address] PCP - General Internal Medicine 09/08/21 documented as of this encounter
== END 2024-12-10 09:37 | disposition home or self-care (01) ==
LOC: HO.HGI 09:13
PROVIDERS: PCP Internal Medicine; Visit Provider Internal Medicine Gastroenterology
DX: R19.7 Diarrhea, unspecified (principal)
CPT/HCPCS: 99213

== ENCOUNTER 2024-12-10 09:12 | Outpatient (REF) | payer OTHER, SELFPAY ==
[2024-12-12 12:24] LABS: H Pylori Breath Test Negative (Negative)
== END 2024-12-10 09:13 | disposition home or self-care (01) ==
LOC: HO.LAB 09:12
PROVIDERS: PCP Internal Medicine; Visit Provider Internal Medicine Gastroenterology
DX: R19.7 Diarrhea, unspecified (principal)
CPT/HCPCS: 83013

== ENCOUNTER 2025-05-13 11:21 | Outpatient (AMB) | payer OTHER, SELFPAY ==
--- NOTE | 2025-05-13 11:36 | MHC.OFFVIS ---
Vital Signs 05/13/25 11:37 Height 5 ft Weight 117 lb BMI 22.8 BP 121/79 Blood Pressure Location Lt brachial Position Sitting Pulse 85 Intake Visit Reasons: 4 month follow up Intake Note: Patient follow up for abdominal pain. Patient cc: abdominal discomfort. 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: No Accompanied by: Self / Same As Patient Allergies No Known Allergies Allergy (Verified 05/13/25 11:30) HPI HPI 4 month follow up: Details: 40 yr old f here for f/u for IBS RECAP: She was dx with IBS with IBS aged 11 She had noted diarrheal stool for last 1 year using imodium a lot more often she can go 5 times a day, can be soft she can note worsening of sx with dairy --avoids lactose if possible Stool: pos EPEC EGD/COLO: 09/25 tortuous colon int hemorrhoids gastritis PATH:chronic gastritis, lymphoid aggregates colon--tissue lactase--nml RAST- negative celiac- neg H pylori was neg INTERIM: Feeling better overall still has bouts of stool frequency, maybe with certain foods like pasta no blood in stools no melena denies abdominal pain, mild discomfort no n/v no dysphagia no weight loss appetite is good align has not helped EXAM: GENERAL: The patient is well developed and nontoxic. VITAL SIGNS:see workflow HEENT: Nonicteric sclerae, PERRLA, EOMI. Oropharynx clear. Moist mucous membranes. Conjunctivae appear well perfused. No thyroid mass. CHEST: Chest wall is nontender. HEART: Regular rate and rhythm without murmurs. LUNGS: Clear to auscultation bilaterally. ABDOMEN: Soft, positive bowel sounds, nontender, no organomegaly.no flank tenderness SKIN: red scaly rash on left arm NEUROLOGIC: Cranial nerves II-XII intact without motor/sensory deficit. Psych: normal affect A/P: 1/ Chronic abnormal bowel habit, ? subacute colitis given lymphoid aggregates 2/ chronic gastrits, H pylori neg ? Autoimmune, Plans: 1/ she will try high fiber diet, add mesalamine and kiwi, if ongoing porbs then mesalamine trial, 2/ consider repeat EGD in 6-12 months f/u 6 months PFSH Surgical History SVT (supraventricular tachycardia) Family History Mother Stroke Father Heart attack Paternal Grandmother Colon cancer Social History Household Members: Family Alcohol intake: current Alcohol intake frequency: holidays/special occasions only Alcohol type: wine Patient Tobacco Use Status: Never used Tobacco Physical Exam Vital Signs: Last Vital Signs Pulse 85 05/13/25 11:37 BP 121/79 05/13/25 11:37 BMI result Body Mass Index 22.8 Assessment & Plan Assessment & Plan (1) Abnormal bowel habits: Code(s): R19.8 - Other specified symptoms and signs involving the digestive system and abdomen Category: Medical Plan: as above Coding Level of Care Code Est Pt Level 3 (54149) Diagnoses Abnormal bowel habits R19.8
[2025-05-13 11:37] VITALS: BP 121/79; PULSE 85; BMI 22.8
--- OUTSIDE RECORDS SUMMARY | 2025-05-13 13:43 | XMS_ITS | Clinical Summary ---
Author Organization [address] [facility] Address [address] [place] [address] Phone Care Team Providers Care Supervisor Typesetting Name Role Phone Cornel Wells DO Primary Care Provider [phone] Surgical History Surgery Date Site/Laterality Comments OTHER SURGICAL HISTORY 2013 PROCEDURE: CATH, ABLATION, LIVEWIRE TC; COMMENT: cryoablation - successful VAGINOSCOPY PROCEDURE: NM COLPOSCOPY CERVIX BX CERVIX & ENDOCRV CURRETAGE; COMMENT: cervicitis ?2003 (abnl pap HGSIL 06/2003) WISDOM TOOTH EXTRACTION 01/2016 Right PROCEDURE: HISTORICAL WISDOM TEETH EXTRACTION; COMMENT: upper and lower right side Medical History Medical History Date Comments Other specified personal his tory presenting hazards to health(V15.89) DX:Other specifie d personal history presenting hazards to health(V15.89) PSVT (paroxysmal supraventri cular tachycardia) ([facility]/HCC V24) 10/15/2010 DX:PSVT (paroxysmal suprave ntricular tachycardia) ([facility]); COMMENT: s/p ablation with Dr. Schultz IBS (irritable bowel syndrome) D X:IBS (irritable bowel syndrome) HGSIL (high grade squamous intraepithelial lesion) on Pap smear of cervix 06/2003 DX:HGSIL (high grade squamou s intraepithelial lesion) on Pap smear of cervix; COMMENT: colpo - showed cervicitis Papanicolaou smear of cervix with atypical squamous cells of undetermined significance (ASC-US) 04/2004 DX:Papanicolaou sme ar of cervix with atypical squamous cells of undetermined significance (ASC-US) MRSA (methicillin resistant staph aureus) culture positive 07/15/2017 DX:MRSA (methicillin resista nt staph aureus) culture positive; COMMENT: MRSA +urine culture (currently ) Chronic tension headache 2013 DX:[employer] cayden tension headache; COMMENT: dx by neuro - gabapentin Headache, migraine DX:Headache, migraine; COMMENT: fiorcet Cervicalgia DX:Cervicalgia; COMMENT: BACLOFEN Dilated cardiomyopathy (CMS/ HCC V24, CMS/HCC V28) 08/25/2018 DX:Dilated cardiomyopathy (H CC); COMMENT: resolved since ablation Rh negative state in antepar rich period DX:Rh negative state in ante period Family History Medical History Relation Name Comments No Known Problems Brother Diabetes Father Hypertension Father Other: HYPERLIPIDEMIA Father No Known Problems Maternal Grandfather No Known Problems Maternal Grandmother Migraines Mother Stroke Mother found to have c ongenital heart disease thereafter No Known Problems Paternal Grandfather Colon cancer Paternal Grandmother Blindness Neg Hx Breast cancer Neg Hx Cataracts Neg Hx Glaucoma Neg Hx Macular degeneration Neg Hx Ovarian cancer Neg Hx Pancreatic cancer Neg Hx Prostate cancer Neg Hx Strabismus Neg Hx Uterine cancer Neg Hx Relation Name Status Comments Brother Alive 1,migrianes Father Alive Maternal Grandfather Maternal Grandmother Mother Alive migraines Paternal Grandfather Paternal Grandmother Son Alive Social History Tobacco Use Types Packs/Day Years Used Date Smoking Tobacco: Never Smokeless Tobacco: Never Alcohol Use Standard Drinks/Week Comments No 0 (1 standard drink = 0.6 oz pur e alcohol) Comments Unknown Sex and Gender Information Value Date Recorded Sex Assigned at Not on file Legal Sex Female 1:53 AM EST Gender Identity Not on file Sexual Orientation Not on file Obstetrics History Plan of Treatment Health Maintenance Due Date Last Done Comments Breast Cancer Screening 1984 Hepatitis B Vaccines (2 of 3 - 19+ 3-dose series) 06/23/2004 05/26/2004 HIV Screening 06/06/2022 Hepatitis C Screening 06/06/2022 Social Influencers of Health Screening 06/06/2022 Cervical Cancer Screening: Pap Smear 06/20/2023 06/20/2020 Depression Screening 07/04/2024 COVID-19 Vaccine ( season) 2025 10/22/2021, 03/23/2021, 02/18/2021 Influenza Vaccine (#1) 2025 , 04/15/2023, 05/07/2022, Additional history exists Cholesterol Screening (Lipid Panel) 10/08/2029 10/08/2024 DTaP,Tdap,and Td Vaccines (3 - Td or Tdap) 10/10/2030 10/10/2020, 12/13/2017 RSV Immunization Adult Patients (1 - 1-dose 75+ series) 2059 Meningococcal ACWY Vaccine Aged Out 11/01/2001 N o longer eligible based on patient's age to complete this topic HPV Vaccines Completed 11/27/2009, 01/2010, 05/08/2009 HIB Vaccines Aged Out No longer eligi ble based on patient's age to complete this topic Hepatitis A Vaccines Aged Out No long er eligible based on patient's age to complete this topic IPV Vaccines Aged Out No longer eligi ble based on patient's age to complete this topic MMR Vaccines Aged Out No longer eligi ble based on patient's age to complete this topic Meningococcal B Vaccine Aged Out No l onger eligible based on patient's age to complete this topic Pneumococcal Vaccine: Pediatrics (0 to 5 Years) and At-Risk Patients (6 to 49 Years) Aged Out No longer eligible based on patient's age to complete this topic RSV Immunization Patients Under 20 months Aged Out No longer eligible based on patient's age to complete this topic Varicella Vaccines Aged Out No longer eligible based on patient's age to complete this topic Procedures Procedure Name Priority Date/Time Associated Diagnosis Comments LIPID PANEL WITH REFLEX TO DIRECT LDL Routine 10/08/2024 9:31 AM EDT Routine general medical examination at a health care facility Impaired fasting glucose Screening for ischemic heart disease Screening for thyroid disorder PAP SMEAR Routine 06/20/2020 from Last 3 Months or Most Recently Relevant to Health Maintenance Results * (ABNORMAL) Lipid panel with reflex to direct LDL (10/08/2024 9:31 AM EDT) Cholesterol 188 0 - 200 mg/dL LAB CHEMISTRY METHOD 10/08/2024 2:18 PM EDT [facility] Triglycerides 121 0 - 150 mg/dL LAB CHEMISTRY METHOD 10/08/2024 2:18 PM EDT [facility] HDL 55 >=40 mg/dL LAB CHEMISTRY METHOD 10/08/2024 2:18 PM EDT [facility] LDL Calculated 109(H) 0 - 100 mg/dL LAB CHEMISTRY METHOD 10/08/2024 2:18 PM EDT [facility] VLDL Cholesterol Lior 24.2 mg/dL LAB CHEMISTRY METHOD 10/08/2024 2:18 PM EDT [facility] Non HDL Chol. (LDL+VLDL) 133 <145 mg/dL LAB CHEMISTRY METHOD 10/08/2024 2:18 PM EDT [facility] Chol/HDL Ratio 3.4 0.0 - 4.4 LAB CHEMISTRY METHOD 10/08/2024 2:18 PM EDT [facility] Blood Venous blood specimen / Unknown Venipuncture / Unknown 10/08/2024 9:31 AM EDT 10/08/2024 9:31 AM EDT us Shaffer Arita BROTH SETTER LAB BLOOD ORDERABLES Final Resul t [facility] [address] [place] [address], [place] [phone] * Pap smear (06/20/2020) 06/20/2020 Narrative HISTORICAL TESTING LAB RESULTING AGENCY - 06/30/2020 2:35 PM EST [id number] THINPREP PAP, IMAGED: NEGATIVE FOR SQUAMOUS INTRAEPITHELIAL LESION AND MALIGNANCY . ABUNDANT RED BLOOD CELLS ARE PRESENT. GABRIELA ARCHULETA(ASCP) (CASE ELECTRONICALLY SIGNED 06 30 2020) RESULT OF APTIMA HIGH RISK HPV ASSAY: HIGH RISK HPV: NEGATIVE (SEROTYPES 16,18,31,33,35,39,45,51,52,56,58,59,66,68) COMPLETED ON 2020-06-24 ADEQUACY: SATISFACTORY ENDOCERVICAL/TRANSFORMATION ZONE COMPONENT ABSENT. SOURCE: THINPREP PAP HPV ANY DX: REFLEX 16 AND 18, CERVICAL, IMAGED CLINICAL INFORMATION: HPV ANY DIAGNOSIS. , LMP 03/24/20, PAP HX POS 2018 ASCUS, HPV NEG [Z12.4] Dayana Torres CNM LAB CYTOLOGY ORDERA BLES Final Result HISTORICAL TESTING LAB RESULTING AGENCY from Last 3 Months or Most Recently Relevant to Health Maintenance Insurance CIG Care Teams Supervisor Typesetting Relationship Specialty Start Date End Date Cornel Wells DO [address] [place] [address] [id number] PCP - General Internal Medicine 10/08/24
== END 2025-05-13 11:52 | disposition home or self-care (01) ==
LOC: HO.HGI 11:22
PROVIDERS: PCP Internal Medicine; Visit Provider Internal Medicine Gastroenterology
DX: R19.8 Other specified symptoms and signs involving the digestive system and abdomen (principal)
CPT/HCPCS: 99213